=== PATIENT | female | born 1950 | race Caucasian/White ===

== ENCOUNTER 2021-07-17 19:23 | Emergency (ER) | payer OTHER ==
[2021-07-17 19:48] VITALS: BMI 57.5
[2021-07-17] MEDS ORDERED: SODIUM CHLORIDE 1,000 ML IV STA (20:24)
[2021-07-17] MEDS ORDERED: ACETAMINOPHEN 1000 MG/100 ML VIAL (NON FORMULARY) IVPB ONE (20:24)
[2021-07-17] MEDS ORDERED: CASIRIVIMAB/IMDEVIMAB 10 ML in SODIUM CHLORIDE 100 ML IVPB ONE (20:27)
[2021-07-17] MEDS ORDERED: ACETAMINOPHEN INJECTION 100 ML IVPB ONE (20:40)
[2021-07-17 20:57] LABS: BASO % 0.4 % (0-2.0); HEMATOCRIT 42.1 % (32.4-45.2); HEMOGLOBIN 14.3 GM/dL (10.7-15.3); LYMPH % 16.5 % (8-40); MCH 28.6 pg (25.7-33.7); MCHC 33.9 g/dl (32.0-36.0); MEAN CELL VOLUME 84.4 fl (80-96); MEAN PLT VOLUME 8.4 fl (7.5-11.1); NEUT % 74.1 % (42.8-82.8); PLATELET COUNT 106 10^3/uL (134-434); RBC 4.99 M/mm3 (3.60-5.2); RDW 15.9 % (11.6-15.6); WHITE BLOOD COUNT 4.8 K/mm3 (4.0-10.0)
[2021-07-17 21:17] LABS: CHLORIDE 104 mmol/L (98-107); SODIUM 135 mmol/L (136-145)
[2021-07-17 21:21] LABS: CALCIUM 7.9 mg/dL (8.5-10.1); CO2 28 mmol/L (21-32)
[2021-07-17 21:22] LABS: BLOOD UREA NITROGEN 11.1 mg/dL (7-18); GLUCOSE,RANDOM 86 mg/dL (74-106)
[2021-07-17 21:24] LABS: CREATININE 0.9 mg/dL (0.55-1.3)
[2021-07-17 21:25] LABS: ANION GAP 3 MMOL/L (8-16)
[2021-07-17] MEDS ORDERED: DEXAMETHASONE SOD PHOSPHATE 10 MG/1 ML VIAL IVPUSH ONE (22:08)
[2021-07-17 22:35] LABS: CALCIUM 7.5 mg/dL (8.5-10.1)
[2021-07-17 22:39] LABS: CREATININE 0.7 mg/dL (0.55-1.3)
[2021-07-17] MEDS ORDERED: DEXAMETHASONE SOD PHOSPHATE 10 MG/1 ML VIAL ONE (22:41)
[2021-07-17 23:06] VITALS: BP 110/78; PULSE 77; TEMP 99
== END 2021-07-17 23:59 | disposition left against medical advice (07) ==
LOC: JER 19:23
PROC: 3E033GC Introduction of Other Therapeutic Substance into Peripheral Vein, Percutaneous Approach (ICD-10-PCS; principal; 2021-07-17)
DX: U07.1 COVID-19 (principal)
CPT/HCPCS: 36415; 71045-TC-FY; 80048; 85025; 93005; 93010; 99285-25; C9803; J0131; J1100; M0240; Q0240; U0003; U0005